=== PATIENT | female | born 1950 | race Caucasian/White ===

== ENCOUNTER 2017-03-31 11:43 | Day surgery (SDC) | payer OTHER ==
[~2017-03-31] VITALS: Ht 170.2 cm; Wt 75.0 kg
[~2017-03-31 11:43] MED LIST: 0.9% Sodium Chloride 1,000 ML IV PRN; AMLO10TA3 PO; HYDR25TA4 PO; LISI-567 PO; Sodium Chloride LOK Flush 10 mL Syringe IV PRN; fentaNYL-PF 50 mCg/mL 2 mL Inj IVPUSH PRN
[2017-03-31 13:07] VITALS: BP 149/98; PULSE 90; RESP 16; O2SAT 99
--- NOTE | 2017-03-31 14:26 | PCM.ENDCOL ---
Colonoscopy Date of Service: March 31, 2017 Physician Zi Guerra MD Pre Procedure Diagnosis: Screening Post Procedure Dx & Findings: Polyp hemorrhoids diverticuli prominent fold Procedure Colonoscopy PROCEDURE IN DETAIL: Prep adequate Withdrawal time 20 minutes After unremarkable rectal examination the Olympus video colonoscope was inserted patient's anal canal and was advanced to cecum. Landmarks were identified including the ileocecal valve and appendiceal orifice. Scope was withdrawn systematically. Visualized colonic mucosa showed healthy shiny mucosa with normal healthy-appearing vasculature. In the cecum, there was a 1 mm polyp which was removed completely using cold forceps. In the ascending colon there was a 1 cm polyp follow-up. Normal saline was used to lift the polyp so we could see the polyp better. 3.5 ml of normal saline injected at the base. Polyp was removed completely using hot snare. In the sigmoid colon, there was a 1 cm prominent fold. This was biopsied. In the sigmoid colon there were 3 very small diverticuli. In the rectum retroflexion was done which showed hemorrhoids. Anal canal was inspected carefully on the way out and hemorrhoids noted. Impression Polyps 2 status post complete removal. One polyp was a centimeter in size. Prominent fold Diverticuli Hemorrhoids Recommendation Repeat colonoscopy 3 years Diverticular diet Presedation Assessment Risks and Benefits Informed consent was obtained from the patient after all risks and benefits including but not limited to drug reaction, infection, pain, bleeding, perforation, as well as alternatives were discussed. Patient monitoring Continuous pulse oximetry, cardiac monitoring, blood pressure monitoring, IV access, and oxygen at 2L per nasal cannula. Periprocedural Fentanyl: Fentanyl 100mcg Incrementally Midazolam: Midazolam 5mg Incrementally Complications There were no periprocedural complications identified. Post Procedure Plan Post Procedure Recommendations 1. Restrict activities today. 2. Resume normal activities in the morning. 3. Resume medications. 4. Patient informed of normal post procedure side effects as bloating, drowsiness, blood streaking in the stool. 5. average risk CRCS. If colon polyps come back as: -Hyperplastic- can repeat colonoscopy in 10 years -Tubular adenoma- repeat colonoscopy in 5 years -Tubulovillous/villous adenoma- repeat colonoscopy in 3 years -If any dysplasia- return to clinic as soon as possible 6. Please don't hesitate to call me with any questions. Zi Guerra MD March 31, 2017 14:26
[2017-03-31 14:28] VITALS: BP 138/74; PULSE 84; RESP 14; O2SAT 99
[2017-03-31 14:38] VITALS: BP 133/70; PULSE 84; RESP 16; O2SAT 100
--- NOTE | 2017-04-02 17:31 | PATH ---
SURGICAL PATHOLOGY Attending Physician:Zi Guerra M.D. CASE STATUS: Signed Out PATIENT NAME: NIMESH HUNG PID: [id number] : 1950 DATE COLLECTED:03/31/2017 00:00 SPECIMEN: 1: Colon, Biopsy 2: Colon, Biopsy CLINICAL HISTORY: 1. RIGHT COLON POLYPS 2. SIGMOID COLON PROOMINENT FINAL DIAGNOSIS: 1. Right Colon Polyps, Biopsies: Multiple portions (approximately 12) of tubular adenoma; negative for high-grade dysplasia. Multiple portions (approximately 4) of sessile serrated adenoma. 2. Sigmoid Colon Prominent Fold, Biopsy: Superficial portion of colorectal mucosa with a prominent lymphoid aggregate and otherwise no diagnostic abnormality. ICD10: K63.5 GROSS DESCRIPTION: The specimen is received in two formalin filled containers labeled with the patient's name. 1). The specimen is sublabeled "right colon polyps" and consists of multiple portions of tissue which aggregate to 0.6-0.6 x 0.4 CM. The specimen is entirely submitted in cassette 1A. 2). The specimen is sublabeled "sigmoid: Prominent fold" and consists of a 0.2 x 0.2 x 0.1 CM portion of tissue which is entirely submitted in cassette 2A. 04/01/2017 [facility] ICD-9 CODES: CPT CODES: 1: 28406 2: 72288 Electronically Signed Out Maria Guadalupe Andujar MD [facility] Pathology [facility], [place] [address] Technical component performed at [facility], [address] [place] [address] Ave[address], [place], [address]
== END 2017-03-31 23:59 | disposition home or self-care (01) ==
LOC: END 11:43
PROVIDERS: ATTEND Internal Medicine
DX: Z12.11 Encounter for screening for malignant neoplasm of colon (principal); D12.2 Benign neoplasm of ascending colon; K63.5 Polyp of colon; K57.30 Diverticulosis of large intestine without perforation or abscess without bleeding; K64.8 Other hemorrhoids; I10 Essential (primary) hypertension; F17.210 Nicotine dependence, cigarettes, uncomplicated
CPT/HCPCS: 45380; 45381; 45385; 99153; G0500; J7030